=== PATIENT | female | born 1995 | race African-American/Black ===

== ENCOUNTER 2023-12-10 11:16 | Emergency (ER) | payer MEDICAID ==
[~2023-12-10] VITALS: Ht 167.6 cm; Wt 100.0 kg
[2023-12-10 11:26] VITALS: TEMP 98.5; O2SAT 99
[2023-12-10] MEDS ORDERED: METH-653 MT (11:57)
[2023-12-10 12:01] VITALS: BP 132/78; PULSE 84; RESP 18
[2023-12-10] MEDS: IBUPROFEN 600MG TABLET PO ONE (12:01)
== END 2023-12-10 12:37 | disposition home or self-care (01) ==
LOC: ER 11:56
DX: M54.50 Low back pain, unspecified (principal)
CPT/HCPCS: 99283